=== PATIENT | female | born 1985 | race Caucasian/White ===

== ENCOUNTER 2017-07-12 07:30 | Emergency (ER) | payer BC ==
[2017-07-12] MEDS ORDERED: Lidocaine Viscous Sol 2% 15 ml UD Cup ONE (07:48)
[2017-07-12] MEDS ORDERED: Lorazepam 2 MG/ML VIAL ONE (07:48)
[2017-07-12] MEDS ORDERED: Mag-Al Plus 1200 MG/1200 MG/120 MG/30 ML UDCUP ONE (07:48)
--- NOTE | 2017-07-12 07:51 | RAD ---
AP VIEW OF THE CHEST: INDICATION: Chest pain and shortness of breath. COMPARISON: None. IMPRESSION: Lungs are clear. Cardiomediastinal silhouette is within normal limits. No acute osseous abnormality is evident. POS: SWATIH
[2017-07-12 08:03] LABS: #Basophils 0.1 thou/uL (0.0-0.2); #Eosinphils 0.2 thou/uL (0.0-0.7); #Lymphocytes 2.7 thou/uL (1.20-3.40); #Monocytes 0.5 thou/uL (0.11-0.59); #Neutrophils 4.5 thou/uL (1.40-6.50); %Basophils 0.9 % (0.0-1.0); %Lymphocytes 34.4 % (21.0-51.0); %Monocytes 6.5 % (0.0-10.0); Hematocrit 39.9 % (36.0-47.0); Mean Platelet Volume 7.1 fL (7.4-10.4); Red Blood Cell (RBC) Count 4.48 mill/uL (4.20-5.40); White Blood Cell (WBC) Count 7.9 thou/uL (4.8-10.8)
[2017-07-12 08:09] LABS: ALT (SGPT) 9 U/L (8-55); AST (SGOT) 11 U/L (5-34); Alkaline Phosphatase 70 U/L (40-150); Anion Gap 11 mmol/L (10-20); BUN (Urea Nitrogen) 12 mg/dL (7.0-18.7); Bilirubin, Total 0.3 mg/dL (0.2-1.2); Calc. Creatinine Clearance 0 mL/min (70-130); Calcium 9.4 mg/dL (7.8-10.44); Carbon Dioxide 25 mmol/L (22-29); Chloride 109 mmol/L (98-107); Estimated GFR-MDRD 86; Globulin 3.1 g/dL (2.4-3.5); Lipase 25 U/L (8-78); Protein, Total 7.6 g/dL (6.0-8.3)
[2017-07-12 08:12] LABS: Troponin I Less than 0.010 ng/mL (< 0.028)
[2017-07-12] MEDS ORDERED: Famotidine/PF 20 mg/2ml Vial ONE (08:59)
[2017-07-12 11:03] LABS: Troponin I 0.011 ng/mL (< 0.028)
== END 2017-07-12 11:27 | disposition home or self-care (01) ==
LOC: SCSER 07:30
DX: R07.2 Precordial pain (principal); F41.1 Generalized anxiety disorder; K51.90 Ulcerative colitis, unspecified, without complications; Z79.899 Other long term (current) drug therapy
CPT/HCPCS: 71010; 80053; 82553; 83690; 84484; 85025; 85379; 93005; 96374; 96375; J2060; S0028

== ENCOUNTER 2017-11-02 10:01 | Outpatient (CLI) | payer OTHER ==
--- NOTE | 2017-11-02 16:06 | MRI ---
MRI OF RIGHT KNEE 11/02/17 PROVIDED CLINICAL HISTORY: Chronic right knee pain. FINDINGS: Comparison is made with the study dated 09/15/07. The anterior cruciate ligament, posterior cruciate ligament, medial collateral ligament and lateral c ollateral ligamentous complex demonstrate an intact MR appearance, as well as the extensor mechanism. The medial and lateral menisci demonstrate no evidence of tear. No focal articular cartilage defect is apparent. The amount of fluid within the knee joint appears physiologic. No focal concerning regional marrow or muscular signal abnormality is apparent. IMPRESSION: No evidence for internal derangement. POS: CET
== END 2017-11-02 10:02 | disposition home or self-care (01) ==
LOC: SCSMRI 10:01
PROVIDERS: ATTEND Orthopaedic Surgery
DX: S83.206A Unspecified tear of unspecified meniscus, current injury, right knee, initial encounter (principal); M25.561 Pain in right knee

== ENCOUNTER 2019-06-16 18:37 | Emergency (ER) | payer OTHER ==
[2019-06-16] MEDS ORDERED: Ondansetron PF 4 MG/2 ML Vial ONE (19:00)
--- NOTE | 2019-06-16 19:20 | RAD ---
XR Pelvis AP STANDARD HISTORY: Fall, right hip pain FINDINGS: No fracture or dislocation is identified.
--- NOTE | 2019-06-16 19:21 | RAD ---
XR Hip Rt 2-3 View HISTORY: Fall, right hip pain FINDINGS: No fracture or dislocation is identified. If there is high suspicion for fracture, further evaluation with CT scan should be performed.
[2019-06-16 20:16] LABS: BHCG - Serum Negative (NEGATIVE); Pregs Control Background? CLEAR/WHITE (CLR/WHITE); Pregs Control Bar Appear? YES (CONTROL BAR)
[2019-06-16 20:20] LABS: #Basophils 0.1 thou/uL (0.0-0.2); #Eosinphils 0.1 thou/uL (0.0-0.7); #Lymphocytes 3.6 thou/uL (1.20-3.40); #Monocytes 0.5 thou/uL (0.11-0.59); #Neutrophils 4.2 thou/uL (1.40-6.50); %Basophils 0.8 % (0.0-1.0); %Eosinophils 1.4 % (0.0-10.0); %Lymphocytes 42.2 % (21.0-51.0); %Monocytes 6.3 % (0.0-10.0); %Neutrophils 49.3 % (42.0-75.0); ALT (SGPT) 14 U/L (8-55); AST (SGOT) 14 U/L (5-34); Alkaline Phosphatase 78 U/L (40-110); Anion Gap 14 mmol/L (10-20); BUN (Urea Nitrogen) 9 mg/dL (7.0-18.7); Bilirubin, Total 0.2 mg/dL (0.2-1.2); Calc. Creatinine Clearance 0 mL/min (70-130); Carbon Dioxide 21 mmol/L (22-29); Chloride 109 mmol/L (98-107); Estimated GFR-MDRD Greater than 90; Globulin 3.1 g/dL (2.4-3.5); Glucose 105 mg/dL (70-105); Hemoglobin 11.2 g/dL (12.0-16.0); Mean Corpuscular HGB CONC 33.2 g/dL (32.0-36.0); Mean Corpuscular Hemoglobin 29.7 pg (27.0-31.0); Mean Corpuscular Volume 89.6 fL (78.0-98.0); Mean Platelet Volume 7.6 fL (7.4-10.4); Platelet Count 283 thou/uL (130-400); Potassium 3.5 mmol/L (3.5-5.1); Protein, Total 7.1 g/dL (6.0-8.3); RBC Distribution Width 12.9 % (11.5-14.5); Red Blood Cell (RBC) Count 3.78 mill/uL (4.20-5.40); Sodium 140 mmol/L (136-145); White Blood Cell (WBC) Count 8.5 thou/uL (4.8-10.8)
[2019-06-16] MEDS ORDERED: Ketorolac Tromethamine 30 MG/ML VIAL ONE (20:34)
--- NOTE | 2019-06-16 20:36 | CT ---
RIGHT HIP CT WITHOUT CONTRAST: 06/16/19 HISTORY: Slip and fall. Pain. COMPARISON: None. FINDINGS: The visualized right hemipelvis is unremarkable. No evidence of an injury to the visualized alimentar y canal as well as uterus and right adnexal structures. Unremarkable urinary bladder. Right sacroiliac joint is patent. The visualized sacral ala are preserved. There is no evidence of a right iliac bone or sacral fracture. Right hip joint space is preserved. Contour of the femoral head is maintained. No fracture. The visualized right inferior pubic ramus and superior pubic ramus are intact. IMPRESSION: No fracture. POS: PPP
--- NOTE | 2019-06-16 20:49 | CT ---
CT LUMBAR SPINE WITHOUT CONTRAST: 06/16/19 HISTORY: Fall. Right leg keeps giving out. Pain. FINDINGS: Five lumbar type vertebrae. The lumbar spine vertebral body height is maintained. No lumbar spine fra cture. There are remote bilateral pars defects at L5 without significant spondylolisthesis. The visualized paraspinal structures are unremarkable. Symmetric attenuation of the psoas muscles. No retroperitoneal mass, lymphadenopathy, or hematoma. The visualized alimentary canal is unremarkable. Limited evaluation of the contents of the central spinal canal and neural foramina due to technique. Visualized sacrum and bony pelvis are intact. The visualized sacral ala are preserved. T12-L1: No significant central canal stenosis or significant foraminal narrowing. L1-L2: No significant central canal stenosis or significant neural foraminal narrowing. L2-L3: There is a broad based disc bulge that abuts the thecal sac. Minimal ligamentum flavum thicken ing and facet hypertrophy. No significant central canal stenosis or significant neural foraminal narr owing. L3-L4: Broad based disc bulge minimally contacts the ventral thecal sac. Minimal ligamentous flavum t hickening. No significant central canal stenosis. Bilaterally, neural foramina are patent. L4-L5: Broad based disc bulge abuts the thecal sac. Mild ligamentum flavum thickening and facet hyper trophy. Overall mild central canal stenosis and mild neural foraminal narrowing. L5-S1: Broad based disc bulge makes contact with the left and right subarticular zone. Mass effect an d partial obscuration of bilateral traversing S1 nerve roots. No significant central canal stenosis. Mild bilateral foraminal narrowing. IMPRESSION: 1. Degenerative changes of the lumbar spine as above. 2. No evidence of lumbar spine vertebral body fracture. 3. 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 No associated spondylolisthesis . POS: PPP
== END 2019-06-16 21:08 | disposition home or self-care (01) ==
LOC: SCSER 18:37
DX: S79.911A Unspecified injury of right hip, initial encounter (principal); W01.0XXA Fall on same level from slipping, tripping and stumbling without subsequent striking against object, initial encounter
CPT/HCPCS: 36415; 72131; 72170; 80053; 84703; 85025; 96374; 96375; J1885; J2270; J2405

== ENCOUNTER 2019-07-26 13:34 | Outpatient (CLI) | payer OTHER ==
--- NOTE | 2019-07-26 16:09 | MRI ---
MRI OF RIGHT KNEE PERFORMED WITHOUT CONTRAST ENHANCEMENT: 07/26/19 HISTORY: Right knee pain for about two years. Anterior cruciate ligament is intact. There is a small ACL cyst present. The posterior cruciate ligam ent is normal in appearance. The medial as well as the lateral meniscus have a normal shape and appearance. The medial and lateral collateral ligaments and iliotibial band regions are normal. There is a new full thickness fissure within the lateral facet of the patella. The fissure is of some what maldonado signal changes could indicate that this is somewhat older and this may represent some granu lation tissue within this fissure. The medial facet appears unremarkable. The medial and lateral [place] llar retinaculum as well as the quadriceps and patellar tendons are normal. The medial and lateral co mpartments of the knee show no evidence of any significant articular cartilage loss. There is no Bake r's cyst formation. IMPRESSION: Linear near full thickness fissure involving the lateral facet patellar articular cartilage. POS: TPC
== END 2019-07-26 13:35 | disposition home or self-care (01) ==
LOC: BICMRI 13:34
PROVIDERS: ATTEND Orthopaedic Surgery
DX: M25.561 Pain in right knee (principal); M22.2X1 Patellofemoral disorders, right knee